=== PATIENT | male | born 1960 | race Caucasian/White ===

== ENCOUNTER 2017-05-01 17:26 | Emergency (ER) | payer MEDICARE, MEDICAID ==
[~2017-05-01] VITALS: Ht 165.1 cm; Wt 75.0 kg
[~2017-05-01 17:26] MED LIST: AMLO10TA4 PO; LIP40 PO
[2017-05-01 18:33] VITALS: BP 160/95
== END 2017-05-02 | disposition left against medical advice (07) ==
LOC: ER 20:09
DX: Z53.21 Procedure and treatment not carried out due to patient leaving prior to being seen by health care provider (principal)

== ENCOUNTER 2017-11-12 09:15 | Observation (INO) | payer MEDICARE, MEDICAID ==
[~2017-11-12] VITALS: Ht 157.5 cm; Wt 73.0 kg
[2017-11-12 10:14] LABS: BASOPHILS % 0.4 % (0.0-2.0); HEMATOCRIT. 44.9 % (42.0-52.0); HEMOGLOBIN. 14.9 g/dL (14.0-18.0); LYMPHOCYTES % 33.8 % (20.0-50.0); MEAN CORPUSCULAR HEMOGLOBIN 30.1 pg (28.0-32.0); MEAN CORPUSCULAR VOLUME 90.8 fL (80.0-94.0); MEAN PLATELET VOLUME 8.1 fl (7.4-10.4); MONOCYTES % 7.6 % (2.0-8.0); NEUTROPHILS % 57.2 % (40.0-76.0); PLATELET 260 x1000/uL (130-400); RED BLOOD CELL COUNT 4.95 mill/uL (4.7-6.1); RED CELL DISTRIBUTION WIDTH 13.8 % (11.6-14.6)
[2017-11-12 10:20] LABS: CHLORIDE 103 mEq/L (98-107)
[2017-11-12 10:21] LABS: INR 1.1
[2017-11-12] MEDS ORDERED: SODIUM CHLORIDE 0.9% 1,000 ML IV ONE (12:01)
[2017-11-12] MEDS ORDERED: ASPIRIN 325MG EC TABLET PO ONE (12:15)
[2017-11-12] MEDS ORDERED: IPRATROPIUM/ALBUTEROL 0.5-3(2.5)MG/3ML NEB INH PRN (19:15)
[2017-11-12] MEDS ORDERED: HYDROCODONE/ACETAMINOPHEN 5/325MG TABLET PO PRN (19:15)
[2017-11-12] MEDS ORDERED: ACETAMINOPHEN 325MG TABLET PO PRN (19:15)
[2017-11-12] MEDS ORDERED: NA PHOS,M-B/NA PHOS,DI-BA ENEMA 118ML PR PRN (19:15)
[2017-11-12] MEDS ORDERED: MAGNESIUM/ALUMINUM HYDROXIDE/SIMETHICONE 30ML UDC PO PRN (19:15)
[2017-11-12] MEDS ORDERED: DIPHENHYDRAMINE 50MG/ML VIAL IV PRN (19:15)
[2017-11-12] MEDS ORDERED: ONDANSETRON HCL 4MG/2ML VIAL IV PRN (19:15)
[2017-11-12 20:58] VITALS: BP 156/87
[2017-11-12] MEDS ORDERED: SODIUM CHLORIDE 0.9% 1,000 ML IV SCH (21:00)
[2017-11-12 21:17] LABS: CLARITY URINE CLEAR (CLEAR); COLOR URINE YELLOW (YELLOW); KETONES URINE NEGATIVE (NEGATIVE); LEUKOCYTE ESTERASE URINE NEGATIVE (NEGATIVE); NITRITE URINE NEGATIVE (NEGATIVE); OCCULT BLOOD URINE NEGATIVE (NEGATIVE); PH URINE >=9.0 (4.5-8.0); PROTEIN URINE NEGATIVE (NEGATIVE); SPECIFIC GRAVITY URINE 1.007 (1.005-1.030); UROBILINOGEN URINE 0.2 E.U./dL (0.2-1.0)
[2017-11-12 21:28] LABS: *AMPHETAMINES SCREEN URINE NEGATIVE (NEGATIVE)
[2017-11-12 21:29] LABS: *BARBITURATES SCREEN URINE NEGATIVE (NEGATIVE); *BENZODIAZEPINES SCREEN URINE NEGATIVE (NEGATIVE); *COCAINE SCREEN URINE NEGATIVE (NEGATIVE); METHADONE URINE SCREEN NEGATIVE (NEGATIVE); OPIATES URINE SCREEN NEGATIVE (NEGATIVE); PHENCYCLIDINE URINE SCREEN NEGATIVE (NEGATIVE)
[2017-11-12 21:30] LABS: CANNABINOID URINE SCREEN NEGATIVE (NEGATIVE)
[2017-11-12 23:00] VITALS: BP 156/87
[2017-11-12] MEDS: ENOXAPARIN 40MG/0.4ML SYR SUBCUT SCH (23:11)
[2017-11-13 00:10] VITALS: BP 148/98
[2017-11-13 00:24] LABS: CREATINE KINASE 103 IU/L (39-308); CREATINE KINASE MB FRACTION 2.2 ng/mL (0.5-3.6)
[2017-11-13] MEDS: CLONIDINE 0.1MG TABLET PO PRN ×2 (04:08→21:24)
[2017-11-13 04:24] VITALS: BP 156/98
[2017-11-13 06:58] LABS: BASOPHILS % 0.3 % (0.0-2.0); EOSINOPHILS % 0.9 % (0.0-5.0); HEMATOCRIT. 42.6 % (42.0-52.0); HEMOGLOBIN. 14.2 g/dL (14.0-18.0); LYMPHOCYTES % 31.9 % (20.0-50.0); MEAN CORPUSCULAR HEMOGLOBIN 30.3 pg (28.0-32.0); MEAN PLATELET VOLUME 8.4 fl (7.4-10.4); MONOCYTES % 9.5 % (2.0-8.0); NEUTROPHILS % 57.4 % (40.0-76.0); PLATELET 276 x1000/uL (130-400); RED BLOOD CELL COUNT 4.68 mill/uL (4.7-6.1); RED CELL DISTRIBUTION WIDTH 13.6 % (11.6-14.6)
[2017-11-13 07:00] LABS: CHLORIDE 102 mEq/L (98-107)
[2017-11-13 07:07] LABS: LDL CHOLESTEROL 76 mg/dL (5-100)
[2017-11-13 07:09] LABS: CREATINE KINASE 92 IU/L (39-308); HDL CHOLESTEROL 46 mg/dL (40-59)
[2017-11-13 07:14] LABS: CREATINE KINASE MB FRACTION 1.5 ng/mL (0.5-3.6)
[2017-11-13 08:00] VITALS: BP 140/86
[2017-11-13] MEDS: ASPIRIN 81MG EC TABLET PO SCH (09:17)
[2017-11-13 12:00] VITALS: BP 125/88
[2017-11-13] MEDS ORDERED: REGADENOSON 0.4 MG/5 ML IV NR (15:00)
[2017-11-13 16:00] VITALS: BP 132/98
[2017-11-13 20:00] VITALS: BP 138/97
[2017-11-13] MEDS: AMLODIPINE 5MG TABLET PO SCH (20:12)
[2017-11-13] MEDS ORDERED: ATORVASTATIN CALCIUM 40MG TABLET PO SCH (21:00)
[2017-11-13] MEDS: ENOXAPARIN 40MG/0.4ML SYR SUBCUT SCH (21:25)
[2017-11-14] VITALS: BP 147/88
[2017-11-14 04:00] VITALS: BP 105/71
[2017-11-14 07:23] LABS: CHLORIDE 105 mEq/L (98-107)
[2017-11-14 07:24] LABS: BASOPHILS % 0.3 % (0.0-2.0); EOSINOPHILS % 1.1 % (0.0-5.0); HEMATOCRIT. 42.8 % (42.0-52.0); HEMOGLOBIN. 14.4 g/dL (14.0-18.0); MEAN CORPUSCULAR HEMOGLOBIN 30.5 pg (28.0-32.0); MEAN CORPUSCULAR VOLUME 90.4 fL (80.0-94.0); MEAN PLATELET VOLUME 8.8 fl (7.4-10.4); MONOCYTES % 8.1 % (2.0-8.0); NEUTROPHILS % 58.5 % (40.0-76.0); PLATELET 270 x1000/uL (130-400); RED BLOOD CELL COUNT 4.73 mill/uL (4.7-6.1); RED CELL DISTRIBUTION WIDTH 13.5 % (11.6-14.6)
[2017-11-14 08:00] VITALS: BP 117/82
[2017-11-14] MEDS: ASPIRIN 81MG EC TABLET PO SCH (09:00)
[2017-11-14] MEDS: AMLODIPINE 5MG TABLET PO SCH (09:00)
[2017-11-14] MEDS ORDERED: REGADENOSON 0.4 MG/5 ML IV ONE (11:39)
[2017-11-14 12:00] VITALS: BP 139/85
[2017-11-14 17:22] VITALS: BP 133/78
== END 2017-11-14 18:15 | disposition home or self-care (01) ==
LOC: ER 10:02 → INTOOBSV 16:00 → 5WST 16:00 → ENRESERV 18:53 → SUPCPDRO 19:07
PROVIDERS: ADMIT Internal Medicine; ATTEND Internal Medicine
DX: R07.89 Other chest pain (principal); I10 Essential (primary) hypertension; E78.00 Pure hypercholesterolemia, unspecified; E78.5 Hyperlipidemia, unspecified; G80.9 Cerebral palsy, unspecified; R73.9 Hyperglycemia, unspecified; Z79.899 Other long term (current) drug therapy
CPT/HCPCS: 36415; 71045; 78452; 80048; 80053; 80061; 80305; 81003; 82550; 82553; 83036; 83735; 83880; 84443; 84484; 85025; 85379; 85610; 93005; 93017; 93306; 96360; 96361; 96372; 99285; A9500; G0378; J1650; J2785; J7030; J7620

== ENCOUNTER 2020-07-20 16:18 | Emergency (ER) | payer MEDICARE, MEDICAID ==
[~2020-07-20] VITALS: Ht 165.1 cm; Wt 75.0 kg
[2020-07-20] MEDS ORDERED: SODIUM CHLORIDE 0.9% 1,000 ML IV ONE (17:00)
[2020-07-20 17:13] LABS: BASOPHILS % 1.1 % (0.0-2.0); EOSINOPHILS % 1.2 % (0.0-5.0); HEMATOCRIT. 43.8 % (42.0-52.0); HEMOGLOBIN. 14.8 g/dL (14.0-18.0); LYMPHOCYTES % 30.2 % (20.0-50.0); MEAN CORPUSCULAR HEMOGLOBIN 30.8 pg (28.0-32.0); MEAN CORPUSCULAR VOLUME 91.3 fL (80.0-94.0); MEAN PLATELET VOLUME 8.3 fl (7.4-10.4); MONOCYTES % 6.6 % (2.0-8.0); NEUTROPHILS % 60.9 % (40.0-76.0); PLATELET 289 x1000/uL (130-400); RED BLOOD CELL COUNT 4.79 mill/uL (4.7-6.1); RED CELL DISTRIBUTION WIDTH 13.2 % (11.6-14.6)
[2020-07-20 17:20] LABS: CHLORIDE 104 mEq/L (98-107)
[2020-07-20 18:04] VITALS: BP 151/89
== END 2020-07-20 18:22 | disposition home or self-care (01) ==
LOC: ER 16:18
DX: G51.0 Bell's palsy (principal); T50.B95A Adverse effect of other viral vaccines, initial encounter; Y92.538 Other ambulatory health services establishments as the place of occurrence of the external cause; R47.81 Slurred speech; R25.1 Tremor, unspecified; R41.0 Disorientation, unspecified; I10 Essential (primary) hypertension; G80.9 Cerebral palsy, unspecified; E78.00 Pure hypercholesterolemia, unspecified; Z79.899 Other long term (current) drug therapy
CPT/HCPCS: 36415; 70450; 80053; 85025; 96360; 99284; J7030

== ENCOUNTER 2021-09-02 10:27 | Emergency (ER) | payer MEDICARE, MEDICAID ==
[~2021-09-02] VITALS: Ht 165.1 cm; Wt 73.0 kg
[2021-09-02] MEDS ORDERED: FAMOTIDINE 20MG/2ML VIAL IV ONE (10:45)
[2021-09-02] MEDS ORDERED: PREDNISONE 20MG TABLET PO ONE (10:45)
[2021-09-02] MEDS ORDERED: FAMOTIDINE 20MG TABLET PO ONE (11:30)
[2021-09-02] MEDS ORDERED: FAMO-135 MT (12:33)
[2021-09-02] MEDS ORDERED: DIPH25CA83 MT (12:33)
[2021-09-02] MEDS ORDERED: P20 MT (12:33)
[2021-09-02 12:54] VITALS: BP 139/91
== END 2021-09-02 12:54 | disposition home or self-care (01) ==
LOC: ER 10:27
DX: T78.49XA Other allergy, initial encounter (principal); X58.XXXA Exposure to other specified factors, initial encounter; E78.00 Pure hypercholesterolemia, unspecified; I10 Essential (primary) hypertension
CPT/HCPCS: 99283; J7512

== ENCOUNTER 2021-10-28 10:25 | Emergency (ER) | payer MEDICARE, MEDICAID ==
[~2021-10-28] VITALS: Ht 165.1 cm; Wt 79.0 kg
[~2021-10-28 10:25] MED LIST changes: +DIPH25CA83 MT; +FAMO-135 MT; +P20 MT
[2021-10-28 14:39] VITALS: BP 139/66
== END 2021-10-28 14:40 | disposition home or self-care (01) ==
LOC: ER 12:20
DX: U07.1 COVID-19 (principal); R05.9 Cough, unspecified; I10 Essential (primary) hypertension; G80.9 Cerebral palsy, unspecified; E78.00 Pure hypercholesterolemia, unspecified; Z79.899 Other long term (current) drug therapy
CPT/HCPCS: 71045; 87426; 99284; C9803

== ENCOUNTER 2022-07-25 11:55 | Emergency (ER) | payer MEDICARE, MEDICAID ==
[~2022-07-25] VITALS: Ht 165.1 cm; Wt 80.0 kg
[2022-07-25 12:01] VITALS: BP 153/93
[2022-07-25] MEDS ORDERED: IBUP-2029 MT (12:34)
[2022-07-25] MEDS ORDERED: IBUPROFEN 600MG TABLET PO ONE (12:45)
== END 2022-07-25 13:40 | disposition home or self-care (01) ==
LOC: ER 13:23
DX: S90.01XA Contusion of right ankle, initial encounter (principal); X58.XXXA Exposure to other specified factors, initial encounter; Y93.89 Activity, other specified; Y92.89 Other specified places as the place of occurrence of the external cause; Y99.8 Other external cause status; E78.00 Pure hypercholesterolemia, unspecified; I10 Essential (primary) hypertension; Z79.899 Other long term (current) drug therapy
CPT/HCPCS: 73610; 99283

== ENCOUNTER 2023-09-27 14:50 | Emergency (ER) | payer MEDICARE, MEDICAID ==
[~2023-09-27] VITALS: Ht 167.6 cm; Wt 81.0 kg
[~2023-09-27 14:50] MED LIST changes: +IBUP-2029 MT
[2023-09-27 15:01] VITALS: O2SAT 97
[2023-09-27] MEDS: KETOROLAC 30MG/ML VIAL IM ONE (16:38)
[2023-09-27 16:47] LABS: BASOPHILS % 0.2 % (0.0-2.0); EOSINOPHILS % 3.4 % (0.0-5.0); HEMATOCRIT. 43.8 % (42.0-52.0); HEMOGLOBIN. 14.9 g/dL (14.0-18.0); LYMPHOCYTES % 27.9 % (20.0-50.0); MEAN CORPUSCULAR HEMOGLOBIN 31.3 pg (28.0-32.0); MONOCYTES % 6.5 % (2.0-8.0); PLATELET 278 x1000/uL (130-400); RED BLOOD CELL COUNT 4.76 mill/uL (4.7-6.1); RED CELL DISTRIBUTION WIDTH 14.1 % (11.6-14.6); WHITE BLOOD COUNT 7.4 x1000/uL (4.5-11.0)
[2023-09-27 16:50] LABS: CHLORIDE 105 mEq/L (98-107); POTASSIUM 3.8 mEq/L (3.5-5.1); SODIUM 137 mEq/L (136-145)
[2023-09-27 16:51] LABS: CALCIUM 9.3 mg/dL (8.7-10.4); CARBON DIOXIDE 27 mEq/L (21-32)
[2023-09-27 16:56] LABS: CREATININE 0.8 mg/dL (0.6-1.3); GLUCOSE 106 mg/dL (70-105); UREA NITROGEN BLOOD 12 mg/dL (9-23)
[2023-09-27 16:58] LABS: ALANINE AMINOTRANSFERASE 37 IU/L (10-49); ALBUMIN 4.7 g/dL (3.2-4.8); ASPARTATE AMINOTRANSFERASE 31 IU/L (<34); BILIRUBIN TOTAL 0.5 mg/dL (0.1-1.0); PROTEIN TOTAL 7.5 g/dL (6.0-8.3)
[2023-09-27] MEDS ORDERED: MAG355OR21 MT (17:34)
[2023-09-27] MEDS ORDERED: TOPUD MT (17:36)
[2023-09-27 18:01] VITALS: BP 133/77; PULSE 77; RESP 18; TEMP 98.2
== END 2023-09-27 19:14 | disposition home or self-care (01) ==
LOC: ER 14:50
DX: M79.642 Pain in left hand (principal); M79.89 Other specified soft tissue disorders; E78.00 Pure hypercholesterolemia, unspecified; I10 Essential (primary) hypertension; Z79.899 Other long term (current) drug therapy
CPT/HCPCS: 36415; 73130; 80053; 85025; 96372; 99284

== ENCOUNTER 2024-01-23 10:13 | Emergency (ER) | payer MEDICARE, MEDICAID ==
[~2024-01-23] VITALS: Ht 170.2 cm; Wt 81.0 kg
[~2024-01-23 10:13] MED LIST changes: +MAG355OR21 MT; +TOPUD MT
[2024-01-23 10:32] VITALS: O2SAT 100
[2024-01-23] MEDS ORDERED: ACET-2708 MT (12:43)
[2024-01-23 13:55] VITALS: BP 173/98; PULSE 67; RESP 18; TEMP 37.11408; O2SAT 97
== END 2024-01-23 13:57 | disposition home or self-care (01) ==
LOC: ER 10:13
DX: H93.13 Tinnitus, bilateral (principal); E78.00 Pure hypercholesterolemia, unspecified; I10 Essential (primary) hypertension; Z98.890 Other specified postprocedural states; Z79.899 Other long term (current) drug therapy
CPT/HCPCS: 99282

== ENCOUNTER 2024-09-03 08:56 | Emergency (ER) | payer MEDICARE, MEDICAID ==
[~2024-09-03] VITALS: Ht 170.2 cm; Wt 83.0 kg
[~2024-09-03 08:56] MED LIST changes: +ACET-2708 MT; +AMLO-905 PO; -AMLO10TA4 PO
[2024-09-03 09:08] VITALS: TEMP 36.9; O2SAT 99
[2024-09-03 09:27] LABS: BASOPHILS % 0.3 % (0.0-2.0); EOSINOPHILS % 1.6 % (0.0-5.0); HEMATOCRIT. 42.3 % (42.0-52.0); HEMOGLOBIN. 13.9 g/dL (14.0-18.0); LYMPHOCYTES % 29.4 % (20.0-50.0); MEAN CORPUSCULAR HEMOGLOBIN 29.8 pg (28.0-32.0); MEAN CORPUSCULAR HGB CONC 32.8 g/dL (31.0-37.0); MEAN CORPUSCULAR VOLUME 90.6 fL (80.0-94.0); MEAN PLATELET VOLUME 7.9 fl (7.4-10.4); NEUTROPHILS % 61.7 % (40.0-76.0); PLATELET 265 x1000/uL (130-400); RED BLOOD CELL COUNT 4.67 mill/uL (4.7-6.1); RED CELL DISTRIBUTION WIDTH 14.8 % (11.6-14.6); WHITE BLOOD COUNT 7.4 x1000/uL (4.5-11.0)
[2024-09-03 09:35] LABS: CHLORIDE 104 mEq/L (98-107); POTASSIUM 4.3 mEq/L (3.5-5.1); SODIUM 139 mEq/L (136-145)
[2024-09-03 09:36] LABS: CARBON DIOXIDE 28 mEq/L (21-32)
[2024-09-03 09:41] LABS: CREATININE 0.9 mg/dL (0.6-1.3); GLUCOSE 147 mg/dL (70-105); UREA NITROGEN BLOOD 14 mg/dL (9-23)
[2024-09-03 09:44] LABS: PROTHROMBIN TIME 10.5 sec (9.6-11.0)
[2024-09-03 10:30] LABS: CLARITY URINE CLEAR (CLEAR); COLOR URINE YELLOW (YELLOW); GLUCOSE URINE NEGATIVE (NEGATIVE); KETONES URINE TRACE (NEGATIVE); LEUKOCYTE ESTERASE URINE NEGATIVE (NEGATIVE); NITRITE URINE NEGATIVE (NEGATIVE); OCCULT BLOOD URINE NEGATIVE (NEGATIVE); PROTEIN URINE NEGATIVE (NEGATIVE); SPECIFIC GRAVITY URINE 1.026 (1.005-1.030)
[2024-09-03] MEDS: ACETAMINOPHEN 500MG TABLET PO ONE (10:47)
[2024-09-03 11:11] LABS: ALANINE AMINOTRANSFERASE 39 IU/L (10-49); ASPARTATE AMINOTRANSFERASE 36 IU/L (<34)
[2024-09-03 11:12] LABS: ALBUMIN 4.2 g/dL (3.2-4.8); BILIRUBIN DIRECT < 0.1 mg/dL (<=3.0); BILIRUBIN TOTAL 0.4 mg/dL (0.1-1.0)
[2024-09-03 12:45] LABS: TROPONIN I HIGH SENSITIVITY 21 ng/L (3.0-53)
[2024-09-03] MEDS ORDERED: VISCOUS LIDOCAINE 2% 15 ML UDC PO ONE (13:30)
[2024-09-03] MEDS ORDERED: MAGNESIUM/ALUMINUM HYDROXIDE/SIMETHICONE 30ML UDC PO ONE (13:30)
[2024-09-03] MEDS: MAGNESIUM/ALUMINUM HYDROXIDE/SIMETHICONE 30ML UDC PO NR (14:17)
[2024-09-03] MEDS: VISCOUS LIDOCAINE 2% 15 ML UDC PO NR (14:17)
[2024-09-03] MEDS: IOHEXOL-300 100 ML BOTTLE ONE (14:52)
[2024-09-03] MEDS ORDERED: FAMO-135 MT (16:27)
[2024-09-03] MEDS ORDERED: ACET-2708 MT (16:27)
[2024-09-03 16:45] VITALS: BP 172/97; PULSE 65; RESP 18; O2SAT 100
== END 2024-09-03 16:49 | disposition home or self-care (01) ==
LOC: ER 09:00
DX: R10.11 Right upper quadrant pain (principal); K29.70 Gastritis, unspecified, without bleeding; E78.00 Pure hypercholesterolemia, unspecified; I10 Essential (primary) hypertension; Z98.890 Other specified postprocedural states; Z79.899 Other long term (current) drug therapy
CPT/HCPCS: 99285; 74177; 76705; 71046; 80076; 80048; 81003; 83690; 85025; 85610; 84484; 93005; 36415; Q9967

== ENCOUNTER 2025-03-15 19:34 | Emergency (ER) | payer MEDICAID ==
[~2025-03-15] VITALS: Ht 165.1 cm; Wt 72.4 kg
[~2025-03-15 19:34] MED LIST changes: +IBUP-1455 MT; -IBUP-2029 MT
[2025-03-15 19:43] VITALS: TEMP 36.8; O2SAT 97
[2025-03-15 19:46] VITALS: O2SAT 98
[2025-03-15 20:50] VITALS: BP 150/93; PULSE 100; RESP 18
[2025-03-15] MEDS: KETOROLAC 30MG/ML VIAL IM ONE (20:50)
[2025-03-15] MEDS: BACITRACIN ZINC OINT UDPKT TOP ONE (22:19)
[2025-03-15] MEDS ORDERED: IBUP-1455 MT (22:25)
[2025-03-15] MEDS ORDERED: BO1 TP (22:25)
== END 2025-03-15 22:44 | disposition home or self-care (01) ==
LOC: ER 19:34
DX: R22.0 Localized swelling, mass and lump, head (principal); S00.81XA Abrasion of other part of head, initial encounter; M25.562 Pain in left knee; I10 Essential (primary) hypertension; G80.8 Other cerebral palsy; W01.0XXA Fall on same level from slipping, tripping and stumbling without subsequent striking against object, initial encounter; Y93.89 Activity, other specified; Y92.89 Other specified places as the place of occurrence of the external cause; Y99.8 Other external cause status
CPT/HCPCS: 99285; 70450; 73560; 70486; 96372; J1885